=== PATIENT | female | born 1990 | race Asian ===

== ENCOUNTER 2019-08-17 16:03 | Day surgery (SDC) | payer BC ==
[2019-08-17 16:36] VITALS: BMI 21.7
[2019-08-17] MEDS ORDERED: hydrALAZINE 20 MG/ML VIAL SLOW IVP PRN (17:10)
--- NOTE | 2019-08-17 17:13 | PDOC.LDHP ---
Labor and Delivery H&P Chief complaint: other (Here for BP Obs from [facility]) HPI: Josue is in LDR6 Here for BP Obs, due to "high BP in office" Patient was seen by me in room 6, at 1715 28 yo G1 at 27 weeks 3 days, seen by Dr Howell. Here for BP obs. No past Med HX. No compliants at this time. No VB, no LOF. UP was negative in office per Dante report to loan reviewer of Systems: comlete ROS completed and as per HPI Current gestational age (weeks): 27 (3 days) Dating criteria: last menstrual period Grav: 1 Current complications: none Abnormal US findings: No Current medications: pre-demetra vitamins Previous surgical history: other (Lipoma removal from abdomen) Allergies/Adverse Reactions: Allergies Allergy/AdvReac Type Severity Reaction Status Date / Time Cephalosporins Allergy Verified 08/17/19 16:52 - Physical Exam Abnormal vital signs: 143/84,156/98,138/85. Pulse 88, afebrile, O2 sats wnl General: NAD Heart: RRR Lungs: CTAB Abdomen: gravid FHT: category 1 (Reactive NST even though ega is 27 weeks) [place] contractions every: none - Assessment BP Obs, possible gestational HTN, at 27 weeks 3 days - Plan Plan: observation in L&D (I have ordered CMP and CBC, UP was normal in office. Serial BPs for 2-4 hrs)
[2019-08-17 17:37] LABS: #Eosinphils 0.2 thou/uL (0.0-0.7); #Lymphocytes 1.4 thou/uL (1.20-3.40); #Monocytes 0.8 thou/uL (0.11-0.59); #Neutrophils 6.5 thou/uL (1.40-6.50); %Basophils 0.2 % (0.0-1.0); %Eosinophils 1.7 % (0.0-10.0); %Lymphocytes 15.7 % (21.0-51.0); %Monocytes 9.2 % (0.0-10.0); %Neutrophils 73.2 % (42.0-75.0); Hemoglobin 11.2 g/dL (12.0-16.0); Mean Corpuscular HGB CONC 35.1 g/dL (32.0-36.0); Mean Corpuscular Hemoglobin 30.5 pg (27.0-31.0); Mean Corpuscular Volume 87.1 fL (78.0-98.0); Mean Platelet Volume 7.8 fL (7.4-10.4); Platelet Count 193 thou/uL (130-400); RBC Distribution Width 11.8 % (11.5-14.5); Red Blood Cell (RBC) Count 3.66 mill/uL (4.20-5.40); White Blood Cell (WBC) Count 8.8 thou/uL (4.8-10.8)
[2019-08-17 18:00] LABS: ALT (SGPT) 7 U/L (8-55); AST (SGOT) 16 U/L (5-34); Albumin 3.7 g/dL (3.5-5.0); Alkaline Phosphatase 58 U/L (40-110); Anion Gap 12 mmol/L (10-20); BUN (Urea Nitrogen) 6 mg/dL (7.0-18.7); Bilirubin, Total 0.2 mg/dL (0.2-1.2); Calc. Creatinine Clearance 140 mL/min (70-130); Calcium 8.8 mg/dL (7.8-10.44); Carbon Dioxide 21 mmol/L (22-29); Chloride 106 mmol/L (98-107); Estimated GFR-MDRD Greater than 90; Globulin 2.6 g/dL (2.4-3.5); Glucose 80 mg/dL (70-105); Potassium 3.7 mmol/L (3.5-5.1); Protein, Total 6.3 g/dL (6.0-8.3); Sodium 135 mmol/L (136-145)
--- NOTE | 2019-08-17 18:14 | PDOC.EVN ---
Event Note - Event Note Event Note: LAB CHECK: cmp AND cbc wnl
--- NOTE | 2019-08-17 19:26 | PDOC.EVN ---
Event Note - Event Note Event Note: BPs reviewed by me with RN (Nancie). She does have low/mild range BPs at 140/90s, but nonsevere. I instructed her to begin low dose daily ASA as she is still under 28 weeks. She was instructed to have a BP check again by Thursday this week before the weekend. Message sent by [employer] to Dr Howell
== END 2019-08-17 19:40 | disposition home or self-care (01) ==
LOC: L&D/OP 16:03
PROVIDERS: ATTEND Obstetrics & Gynecology
DX: O99.89 Other specified diseases and conditions complicating pregnancy, childbirth and the puerperium (principal); R03.0 Elevated blood-pressure reading, without diagnosis of hypertension; Z3A.27 27 weeks gestation of pregnancy; Z88.1 Allergy status to other antibiotic agents
CPT/HCPCS: 36415; 80053; 85025

== ENCOUNTER 2019-10-30 18:00 | Inpatient (IN) | payer BC ==
[~2019-10-30 18:00] MED LIST: Bupivacaine 0.25% HCL 30 ML VIAL ONE
[2019-10-30] MEDS: Lactated Ringer's 1,000 ML IV SCH (18:45)
[2019-10-30] MEDS ORDERED: hydrALAZINE 20 MG/ML VIAL ONE (18:55)
[2019-10-30] MEDS ORDERED: Ondansetron PF 4 MG/2 ML Vial IVP PRN (19:00)
[2019-10-30] MEDS ORDERED: hydrALAZINE 20 MG/ML VIAL SLOW IVP PRN (19:00)
[2019-10-30] MEDS ORDERED: Promethazine HCl 25 MG/ML VIAL IM PRN (19:00)
[2019-10-30] MEDS ORDERED: Zolpidem Tartrate 5 MG TAB PO PRN (19:00)
[2019-10-30] MEDS ORDERED: Acetaminophen 500 MG TAB PO PRN (19:00)
[2019-10-30] MEDS ORDERED: Butorphanol Tartrate 1 MG/ML VIAL SLOW IVP PRN (19:00)
[2019-10-30] MEDS ORDERED: Lidocaine 1% (PF) 30 ML VIAL SC PRN (19:00)
[2019-10-30 19:06] VITALS: BMI 27.6
[2019-10-30] MEDS ORDERED: NS w/ Oxytocin 10 units 500 ML IV SCH (19:15)
[2019-10-30] MEDS: Labetalol HCl 100 MG/20 ML VIAL SLOW IVP SCH (20:00)
[2019-10-30 20:26] LABS: Hemoglobin 13.7 g/dL (12.0-16.0); Mean Corpuscular HGB CONC 34.4 g/dL (32.0-36.0); Mean Corpuscular Hemoglobin 30.1 pg (27.0-31.0); Mean Corpuscular Volume 87.5 fL (78.0-98.0); Mean Platelet Volume 9.3 fL (7.4-10.4); Platelet Count 213 thou/uL (130-400); RBC Distribution Width 12.7 % (11.5-14.5); Red Blood Cell (RBC) Count 4.56 mill/uL (4.20-5.40); White Blood Cell (WBC) Count 8.4 thou/uL (4.8-10.8)
[2019-10-30] MEDS: Misoprostol 100 MCG TAB VAG SCH (20:53)
[2019-10-30 20:57] LABS: ALT (SGPT) 8 U/L (8-55); AST (SGOT) 12 U/L (5-34); Albumin 3.9 g/dL (3.5-5.0); Alkaline Phosphatase 204 U/L (40-110); Anion Gap 17 mmol/L (10-20); BUN (Urea Nitrogen) 8 mg/dL (7.0-18.7); Bilirubin, Total 0.3 mg/dL (0.2-1.2); Calc. Creatinine Clearance 147 mL/min (70-130); Calcium 9.5 mg/dL (7.8-10.44); Carbon Dioxide 20 mmol/L (22-29); Chloride 106 mmol/L (98-107); Estimated GFR-MDRD Greater than 90; Globulin 2.6 g/dL (2.4-3.5); Glucose 89 mg/dL (70-105); Potassium 4.5 mmol/L (3.5-5.1); Protein, Total 6.5 g/dL (6.0-8.3); Sodium 138 mmol/L (136-145)
[2019-10-30 21:05] LABS: Syphilis Antibody Nonreactive (Nonreactive); Syphilis Antibody Index 0.04 S/CO (<1.00 Non-Reactive)
[2019-10-30 23:33] LABS: HBSAg Index 0.18 S/CO (0-0.99); Hep B Surf Ag Non-Reactive S/CO (NonReactive)
[2019-10-31] MEDS: Misoprostol 100 MCG TAB VAG SCH ×3 (00:54→06:47)
[2019-10-31] MEDS ORDERED: Butorphanol Tartrate 1 MG/ML VIAL ONE (03:11)
[2019-10-31] MEDS ORDERED: Lidocaine 1% (PF) 30 ML VIAL ONE ×2 (03:24→14:27)
[2019-10-31] MEDS: Labetalol HCl 100 MG/20 ML VIAL SLOW IVP SCH ×2 (03:26→13:12)
[2019-10-31] MEDS ORDERED: Magnesium Sulfate 20 gm/500 ml 20 GM/500 ML BAG IVPB PRN (03:48)
[2019-10-31] MEDS ORDERED: Calcium Gluc 4.6 MEQ/10 ML (100 MG/ML) IV PRN (03:54)
[2019-10-31] MEDS ORDERED: MAGNESIUM SULFATE IV SCH (04:00)
[2019-10-31] MEDS ORDERED: Magnesium Sulfate 20 gm/500 ml 20 GM/500 ML BAG IVPB SCH (04:00)
[2019-10-31] MEDS ORDERED: DEXTROSE 5% IV SCH (04:00)
[2019-10-31] MEDS ORDERED: Magnesium Sulfate 20 gm/500 ml 4 GM/100 ML BAG IVPB SCH (04:00)
[2019-10-31] MEDS ORDERED: WATER IV SCH (04:00)
[2019-10-31] MEDS: Lactated Ringer's 1,000 ML IV SCH ×2 (04:14→13:33)
[2019-10-31] MEDS ORDERED: Fentanyl 4 mcg/Bup 0.1% Cadd 100 ML ONE ×2 (05:04→13:38)
[2019-10-31] MEDS ORDERED: ePHEDrine/0.9% NaCl/PF SYRINGE 50 mg/10 ml SLOW IVP PRN (07:04)
[2019-10-31] MEDS ORDERED: Acetaminophen 325 MG TAB PO PRN (07:04)
[2019-10-31] MEDS ORDERED: Ondansetron PF 4 MG/2 ML Vial IVP PRN (07:04)
[2019-10-31] MEDS ORDERED: Promethazine HCl 25 MG/ML VIAL IM PRN (07:04)
[2019-10-31] MEDS ORDERED: Lactated Ringer's 500 ML IV PRN (07:04)
[2019-10-31] MEDS ORDERED: diphenhydrAMINE 50 MG/ML VIAL IVP PRN (07:04)
[2019-10-31] MEDS ORDERED: Naloxone HCl 0.4 mg/ml Vial IVP PRN ×2 (07:04)
[2019-10-31] MEDS ORDERED: Fentanyl 4 mcg/Bupivacaine 0.1% Cassette 100 ML EPIDURAL SCH (07:15)
[2019-10-31] MEDS ORDERED: Communication Order-Pharmacy FS PRN (07:15)
--- NOTE | 2019-10-31 07:41 | PDOC.LDHP ---
Labor and Delivery H&P Chief complaint: scheduled induction HPI: 28 y/o at 38 weeks with severe gestational hypertension and Class A1GDM. Undergoing labor induction. Progressing well. Blood pressures responding to prn labetolol. Labs normal. On magnesium prophylaxis... Current gestational age (weeks): 38 Dating criteria: first trimester ultrasound Grav: 1 Para: 0 Current complications: gestational diabetes, gestational hypertension Abnormal US findings: No Past Medical History: appy Current medications: pre-demetra vitamins, other (81 mg asa/d) Previous surgical history: appendectomy Allergies/Adverse Reactions: Allergies Allergy/AdvReac Type Severity Reaction Status Date / Time Cephalosporins Allergy Verified 08/17/19 16:52 Social history: none - Vaginal Exam cm dilated: 4 Effacement: 75% Station: -1 - OB Labs Blood type: AB RH: negative Antibody Screen: negative HIV: negative RPR: negative HEPSAg: negative GBS: negative Urine drug screen: negative Rubella: immune - Assessment L&D Assessment: medically indicated induction
[2019-10-31] MEDS: Magnesium Sulfate 20 GM in Dextrose 5% in Water 460 ML IV SCH ×2 (12:48→23:44)
[2019-10-31] MEDS ORDERED: NS / Oxytocin 40 units/1000ml 1,000 ML ONE (14:28)
[2019-10-31] MEDS: NS / Oxytocin 40 units/1000ml 1,000 ML IV PRN ×2 (16:48→20:57)
[2019-10-31] MEDS ORDERED: HYDROcodone/Acetaminophen 5/325 mg Tablet PO PRN (20:19)
[2019-10-31] MEDS ORDERED: Meperidine HCl/PF 25 MG/ML VIAL ONE (22:22)
[2019-10-31 22:59] LABS: Mean Corpuscular HGB CONC 34.6 g/dL (32.0-36.0); Mean Corpuscular Volume 86.7 fL (78.0-98.0); Mean Platelet Volume 8.6 fL (7.4-10.4); Platelet Count 194 thou/uL (130-400); RBC Distribution Width 12.4 % (11.5-14.5); Red Blood Cell (RBC) Count 2.98 mill/uL (4.20-5.40); White Blood Cell (WBC) Count 13.8 thou/uL (4.8-10.8)
[2019-10-31 23:03] LABS: INR-International Normal Ratio 1.1; Prothrombin Time 14.2 SEC (12.0-14.7)
[2019-11-01] MEDS ORDERED: Promethazine HCl 25 MG/ML VIAL IM SCH (00:30)
[2019-11-01] MEDS: Ibuprofen 800 MG TAB PO SCH ×4 (01:03→21:28)
--- NOTE | 2019-11-01 04:02 | OP ---
DATE OF PROCEDURE: 10/31/2019 PREOPERATIVE DIAGNOSES: 1. The patient is approximately 6 hours post vaginal vacuum assisted vaginal delivery. 2. Known bilateral vaginal sulci lacerations with second-degree perineal laceration initially repaired. 3. Onset of vaginal bleeding with apparent bleed in the perineal laceration area approximately 6 hours post delivery. POSTOPERATIVE DIAGNOSES: 1. The patient is approximately 6 hours post vaginal vacuum assisted vaginal delivery. 2. Known bilateral vaginal sulci lacerations with second-degree perineal laceration initially repaired. 3. Onset of vaginal bleeding with apparent bleed in the perineal laceration area approximately 6 hours post delivery. PROCEDURES: 1. Exam under IV sedation. 2. Repair of exploration and repair of perineal vaginal laceration bleeding. 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 ESTIMATED BLOOD LOSS: From the procedure was 20 mL. Prior to this estimate was 365 mL post delivery bleeding. QBL: At initial delivery was 800 mL due to predelivery bleeding from the sulci vaginal lacerations and during repair of the lacerations. FINDINGS: Exam under anesthesia, bilateral vaginal sulci lacerations were intact with no evidence of active bleeding. The active bleeding appeared to be emanating from underneath the perineal laceration repair. On opening of the perineal suture line, there was an active bleeder on the patient's left vaginal perineal region status post now obtaining hemostasis. DESCRIPTION OF PROCEDURE: The patient had received IV sedation with 75 mg of Demerol and 25 mg of Phenergan ordered by Dr. Mathew prior to my arrival. The patient was in the dorsal lithotomy position with stirrups in the delivery bed and LDR7. Sosa catheter was draining. On exam after the area was irrigated with Betaseptine and saline solution. A retractor was placed in the vagina. Inspection of the bilateral vaginal sidewall repairs, there was no active bleeding and intact, 2-0 chromic suture line was noted. No apparent expanding hematoma was noted. Then on inspection inside the introitus at approximately 2'o clock, there was heavier bleeding in this region. I incised the previous placed 2-0 chromic sutures in the second-degree perineal repair. This allowed for exposure of the perineal laceration. The bleeding of the area was then isolated and interrupted [id number] throws of 2-0 chromic were placed achieving hemostasis. Then, the area was replicated with interrupted [id number] sutures of 2-0 chromic suture in the perineum reapproximating this area. Then, I performed a running a deeper subcutaneous stitch in the perineal region and then a subcuticular stitch and this was tied off. Hemostasis at the site was confirmed. The Ray-Tecs were removed and the counts were correct and noted to be 10 x2. Large sponge was also in the count. We observed there was no evidence of any expanding hematoma in the perineal area. No active bleeding was noted. The patient will be will receive 1 unit of packed red cells due to her tachycardia in the one-teens and blood pressure is 100/70. Baseline has been 130s/80s post recovery. We will assess . Hematocrit was noted to be 25.8%. Coags including PT, PTT, and fibrinogen are pending. Job ID: [id number]
[2019-11-01] MEDS ORDERED: Benzocaine-Menthol 82.5 ML CAN TOP PRN (05:19)
--- NOTE | 2019-11-01 07:51 | PDOC.EVN ---
Event Note - Event Note Event Note: LICU Feels better this AM. Minimal perineal pain. O: 132/89 P94-109 U/O 50-150/ hour--clearing.... ABD: soft/non distended. Fundus firm. Perineum is intact.. No active bleeding.. No excessive swelling. A/P..1) D/c magnesium.2)Repeat hemagram after one unit PRBC and see if more is indicated. Pulse low 100 at rest.. 3) Advance diet. D/c neumann..
[2019-11-01 08:46] LABS: Hemoglobin 8.5 g/dL (12.0-16.0); Mean Corpuscular HGB CONC 34.5 g/dL (32.0-36.0); Mean Corpuscular Hemoglobin 30.7 pg (27.0-31.0); Mean Corpuscular Volume 89.1 fL (78.0-98.0); Mean Platelet Volume 9.2 fL (7.4-10.4); Platelet Count 182 thou/uL (130-400); RBC Distribution Width 13.4 % (11.5-14.5); Red Blood Cell (RBC) Count 2.76 mill/uL (4.20-5.40); White Blood Cell (WBC) Count 12.1 thou/uL (4.8-10.8)
[2019-11-01] MEDS ORDERED: Adacel (T-DAP) 0.5 ML SYRINGE IM ONE (14:57)
[2019-11-01] MEDS ORDERED: traMADol HCl 50 MG TAB PO PRN (14:57)
[2019-11-01] MEDS ORDERED: Bisacodyl 10 MG SUPP PR PRN (14:57)
[2019-11-01] MEDS ORDERED: hydrALAZINE 20 MG/ML VIAL SLOW IVP PRN (14:57)
[2019-11-01] MEDS ORDERED: Milk Of Magnesia 30 ML UDCUP PO PRN (14:57)
[2019-11-01] MEDS ORDERED: NS / Oxytocin 40 units/1000ml 1,000 ML IV SCH (15:00)
[2019-11-01] MEDS: Misoprostol 100 MCG TAB VAG SCH ×4 (16:43→18:29)
[2019-11-01] MEDS: Lactated Ringer's 1,000 ML IV SCH ×3 (18:24→22:07)
[2019-11-01] MEDS: Ferrous Sulfate 325 MG TAB PO SCH (18:52)
[2019-11-01 21:19] LABS: Hemoglobin 8.5 g/dL (12.0-16.0)
[2019-11-01] MEDS: Docusate Calcium (SURFAK) 240 MG CAP PO SCH (21:28)
[2019-11-02 05:36] LABS: #Eosinphils 0.1 thou/uL (0.0-0.7); #Lymphocytes 2.1 thou/uL (1.20-3.40); #Monocytes 1.2 thou/uL (0.11-0.59); #Neutrophils 10.8 thou/uL (1.40-6.50); %Basophils 0.3 % (0.0-1.0); %Eosinophils 0.6 % (0.0-10.0); %Lymphocytes 14.5 % (21.0-51.0); %Monocytes 8.5 % (0.0-10.0); %Neutrophils 76.1 % (42.0-75.0); Hemoglobin 7.4 g/dL (12.0-16.0); Mean Corpuscular HGB CONC 34.1 g/dL (32.0-36.0); Mean Corpuscular Hemoglobin 30.7 pg (27.0-31.0); Mean Platelet Volume 8.5 fL (7.4-10.4); Platelet Count 171 thou/uL (130-400); RBC Distribution Width 13.2 % (11.5-14.5); Red Blood Cell (RBC) Count 2.42 mill/uL (4.20-5.40); White Blood Cell (WBC) Count 14.2 thou/uL (4.8-10.8)
[2019-11-02] MEDS: Ibuprofen 800 MG TAB PO SCH ×3 (05:55→21:04)
--- NOTE | 2019-11-02 08:15 | PDOC.PP ---
Post Progress Note Post Day #: 2 Subjective: Feeling better. No orthostatic symptoms. PO intake tolerated: yes Flatus: yes Ambulation: yes Vital Signs (12 hours) Temp Pulse Resp BP BP BP BP 11/02/19 07:49 98.2 F 108 H 20 127/81 11/02/19 04:00 98.3 F 101 H 16 124/80 11/02/19 00:00 98.9 F 117 H 16 121/72 11/01/19 20:48 124 H 132/72 135/74 134/76 11/01/19 20:40 137 H 135/72 11/01/19 20:25 99.3 F 139 H 16 135/82 Pulse Ox 11/02/19 07:49 98 11/02/19 04:00 100 11/02/19 00:00 98 11/01/19 20:48 11/01/19 20:40 11/01/19 20:25 98 Weight Weight 146 lb Most Recent Monitor Data Heart Rate from ECG 111 NIBP 129/80 Result Diagrams: 11/02/19 04:47 10/30/19 20:14 Additional Labs: Post Labs Blood Type AB POSITIVE 10/30/19 20:31 Hep Bs Antigen Non-Reactive S/CO (NonReactive) 10/30/19 20:14 - Assessment/Plan PPD 2 from VE assisted vaginal delivery. Severe PIH-blood pressures normalized. PPH from lacerations-s/p 2 units PRBC's.. HGB >7. Tachycardia improved. Asymptomatic. Observe for anemia symptoms. begin iron supplement. Missy care .. Possible discharge late today.
[2019-11-02] MEDS: Docusate Calcium (SURFAK) 240 MG CAP PO SCH ×2 (08:56→21:04)
[2019-11-02] MEDS: Ferrous Sulfate 325 MG TAB PO SCH ×2 (08:56→19:12)
[2019-11-02] MEDS: Lactated Ringer's 1,000 ML IV SCH (13:19)
[2019-11-02] MEDS: HYDROcodone/Acetaminophen 5/325 mg Tablet PO PRN (15:01)
[2019-11-02] MEDS ORDERED: Sodium Chloride 0.9% 10 ML ONE ×2 (15:21→17:55)
[2019-11-02] MEDS: Ampicillin/Sulbactam 3 GM in Sodium Chloride 0.9% 100 ML IVPB SCH ×2 (15:39→21:33)
[2019-11-02] MEDS ORDERED: Ampicillin/Sulbactam 3 GM in Sodium Chloride 0.9% 100 ML IVPB SCH (18:00)
[2019-11-02] MEDS ORDERED: Acetaminophen 325 MG TAB PO PRN (21:11)
[2019-11-03] MEDS: Lactated Ringer's 1,000 ML IV SCH ×2 (00:20→14:18)
[2019-11-03] MEDS: Ampicillin/Sulbactam 3 GM in Sodium Chloride 0.9% 100 ML IVPB SCH ×5 (00:22→18:28)
[2019-11-03 05:17] LABS: Hemoglobin 8.3 g/dL (12.0-16.0); Mean Corpuscular Hemoglobin 31.1 pg (27.0-31.0); Mean Corpuscular Volume 88.8 fL (78.0-98.0); Mean Platelet Volume 8.2 fL (7.4-10.4); Platelet Count 160 thou/uL (130-400); RBC Distribution Width 13.3 % (11.5-14.5); Red Blood Cell (RBC) Count 2.67 mill/uL (4.20-5.40); White Blood Cell (WBC) Count 18.2 thou/uL (4.8-10.8)
[2019-11-03] MEDS: Ibuprofen 800 MG TAB PO SCH ×3 (05:30→21:29)
[2019-11-03] MEDS: HYDROcodone/Acetaminophen 5/325 mg Tablet PO PRN (06:35)
--- NOTE | 2019-11-03 08:03 | PDOC.PP ---
Post Progress Note Post Day #: 3 Subjective: Feels better today. Denies any excessive perineal pain,no pelvic pain. NO dyspnea or cough or flank pain.No breast pain. O:Tmax 102...Tc98.3.P106 O2 sat 98 % RA. HGB 8.3 at o600 after unit #3... Chest CTA NO CVAT ABDOMEN:soft/non tender. Fundus below umbilicus and non tender perineum-no excessive edema . Normal lochia rubra. BLOOD CX neg x 2. A/P:PPD 3-4 from VE assited vaginal delivery. Severe PIH. Spiked fever <24 hours ago. No clear source. Unasyn initiated...Received additional unit of PRBC' S. Appropriate rise of HGB and tachycardia improved. Will continue unasyn for now. If fever curve continues to downtrend and continues to improve clinically, discharge home on oral augmentin... Vital Signs (12 hours) Temp Pulse Resp BP BP BP Pulse Ox 11/03/19 04:15 98.3 F 103 H 18 117/65 98 11/03/19 00:07 98.9 F 123 H 20 111/65 97 11/02/19 22:45 99.2 F 135 H 20 123/71 98 11/02/19 21:25 101.6 F H 126 H 18 128/66 97 11/02/19 20:43 102.5 F H 152 H 16 125/69 96 Weight Weight 146 lb Most Recent Monitor Data Heart Rate from ECG 123 NIBP 129/80 Respiration from ECG 20 Result Diagrams: 11/03/19 04:41 10/30/19 20:14 Additional Labs: Post Labs Blood Type AB POSITIVE 10/30/19 20:31 Hep Bs Antigen Non-Reactive S/CO (NonReactive) 10/30/19 20:14
[2019-11-03] MEDS: Ferrous Sulfate 325 MG TAB PO SCH ×2 (10:38→17:58)
[2019-11-03] MEDS: Docusate Calcium (SURFAK) 240 MG CAP PO SCH ×2 (10:38→21:29)
[2019-11-03] MEDS ORDERED: Sodium Chloride 0.9% 10 ML IV PRN (12:56)
[2019-11-03] MEDS ORDERED: Sodium Chloride 0.9% 10 ML ONE (14:21)
[2019-11-03] MEDS ORDERED: Lanolin Ointment 7 GM TUBE TOP PRN (22:37)
[2019-11-03] MEDS ORDERED: Benzocaine-Menthol 82.5 ML CAN TOP PRN (22:37)
[2019-11-04] MEDS: Ampicillin/Sulbactam 3 GM in Sodium Chloride 0.9% 100 ML IVPB SCH ×2 (00:10→05:08)
[2019-11-04] MEDS: Ibuprofen 800 MG TAB PO SCH (05:09)
[2019-11-04] MEDS: Lactated Ringer's 1,000 ML IV SCH (06:21)
--- NOTE | 2019-11-04 07:09 | PDOC.PP ---
Post Progress Note Post Day #: 3 PO intake tolerated: yes Flatus: yes Ambulation: yes Vital Signs (12 hours) Temp Pulse Resp BP Pulse Ox 11/04/19 04:30 98.4 F 94 18 138/84 98 11/04/19 00:00 98.5 F 104 H 18 137/83 96 11/03/19 20:00 98.1 F 116 H 16 129/65 96 Weight Weight 146 lb Most Recent Monitor Data Heart Rate from ECG 123 NIBP 129/80 Respiration from ECG 20 - Physical Examination General: NAD Cardiovascular: no m/r/g, RRR Respiratory: clear to auscultation bilaterally, non-labored breathing Abdominal: + bowel sounds, lochia, no distention, appropriately TTP Extremities: negative homans (B) Neurological: no gross focal deficits Result Diagrams: 11/03/19 04:41 10/30/19 20:14 Additional Labs: Post Labs Blood Type AB POSITIVE 10/30/19 20:31 Hep Bs Antigen Non-Reactive S/CO (NonReactive) 10/30/19 20:14 - Assessment/Plan afebrile - gnr low count not id'd. doing well. will dc on 5 d of augmentin.
[2019-11-04 08:01] VITALS: BP 143/81; TEMP 98.1
[2019-11-04] MEDS: Ferrous Sulfate 325 MG TAB PO SCH (08:37)
[2019-11-04] MEDS: Docusate Calcium (SURFAK) 240 MG CAP PO SCH (08:37)
--- NOTE | 2019-11-07 00:31 | PQF ---
Kayla Acevedo DANIEL D MD [id number] CLINICAL DOCUMENTATION CLARIFICATION FORM: POST DISCHARGE Addendum to original discharge summary date: 11/08/19 Late entry note date: __ DATE: 11/07/19 ATTN: Tico Vogt Please exercise your independent, professional judgment in responding to the clarification form. Clinical indicators are provided on the bottom of this form for your review I was not directley involved in this patients care beyond discharge. However review of the case reveals below, and I am attesting to it in order to facilitate medical records request only . Please check appropriate box(s): [ xx ] Acute blood loss anemia [ ] Post-op anemia related to acute blood loss [ ] Chronic Anemia due to Blood loss [ ] Other diagnosis [ ] Unable to determine In addition, please specify: Present on Admission (POA): [ ] Yes [ xx ] No [ ] Unable to determine For continuity of documentation, please document condition throughout progress notes and discharge summary. Thank You. CLINICAL INDICATORS - SIGNS / SYMPTOMS / LABS Laboratory Chemistry 10/31 Hgb 9.0, Hct 25.8 Laboratory Chemistry 11/01 Hgb 8.5, Hct 24.6 Laboratory Chemistry 11/02 Hgb 7.4, Hct 21.8 Operative note p1 10/31 QBL: at initial delivery was 800ml due to predelivery bleeding from the sulci vaginal laceration and during repair of the lacerations [employer] Labor and Delivery L&D p1 10/31 28 year old at 38 weeks Operative note p1 10/31 - Vacuum assisted Delivery TREATMENTS: Blood bank 10/31- transfused PRBC MAR 11/01 Ferrous Sulfate 325 mg (This form is maintained as a part of the permanent medical record) 2014 [employer] All Rights Reserved [email or web address] [not provided] MTDD
== END 2019-11-04 09:25 | disposition home or self-care (01) | DRG 806 ==
LOC: L&D 18:12 → 3SW 11-01 16:15
PROVIDERS: ADMIT Obstetrics & Gynecology; ATTEND Obstetrics & Gynecology
PROC: 10D07Z6 Extraction of Products of Conception, Vacuum, Via Natural or Artificial Opening (ICD-10-PCS; principal; 2019-10-31)
PROC: 0KQM0ZZ Repair Perineum Muscle, Open Approach (ICD-10-PCS; 2019-10-31)
PROC: 30233N1 Transfusion of Nonautologous Red Blood Cells into Peripheral Vein, Percutaneous Approach (ICD-10-PCS; 2019-10-31)
PROC: 10907ZC Drainage of Amniotic Fluid, Therapeutic from Products of Conception, Via Natural or Artificial Opening (ICD-10-PCS; 2019-10-31)
PROC: 0KQM0ZZ Repair Perineum Muscle, Open Approach (ICD-10-PCS; 2019-10-31)
PROC: 3E033VJ Introduction of Other Hormone into Peripheral Vein, Percutaneous Approach (ICD-10-PCS; 2019-10-31)
PROC: 3E0P7VZ Introduction of Hormone into Female Reproductive, Via Natural or Artificial Opening (ICD-10-PCS; 2019-10-31)
DX: O14.14 Severe pre-eclampsia complicating childbirth (principal); D62 Acute posthemorrhagic anemia; Z37.0 Single live birth; Z3A.38 38 weeks gestation of pregnancy; O24.420 Gestational diabetes mellitus in childbirth, diet controlled; O70.1 Second degree perineal laceration during delivery; O72.1 Other immediate postpartum hemorrhage; Z88.1 Allergy status to other antibiotic agents; Z79.899 Other long term (current) drug therapy; Z79.82 Long term (current) use of aspirin; O90.81 Anemia of the puerperium
CPT/HCPCS: 36415; 36416; 36430; 51702; 80053; 81003; 85025; 85027; 85384; 85610; 85730; 86780; 86850; 86900; 86901; 87040; 87086; 87340; J0295; J0360; J0595; J2001; J2175; J2550; J3475; J3490; J7070; P9016; S0020